=== PATIENT | female | born 1975 | race Caucasian/White ===

== ENCOUNTER 2019-08-27 20:28 | Emergency (ER) | payer BC, OTHER ==
[~2019-08-27] VITALS: Ht 160 cm; Wt 70.3 kg
[~2019-08-27 20:28] MED LIST: [UNRECOGNIZED DRUG - OTHER]
[2019-08-27 20:35] VITALS: BP 146/100
--- NOTE | 2019-08-27 20:47 | NUR ---
PT AMBULATES WITH STEADY GAIT TO RR TO PROVIDE URINE SAMPLE. INSTRUCTED TO RETURN TO BED 07.
--- NOTE | 2019-08-27 20:53 | NUR ---
44 Y/O F PRESENTS TO ER C/O SUPRAPUBIC PAIN X 2 DAYS. PAIN LEVLE 8/10 CONSTANT, SHARP AND RADIATES TO LOWER BACK. PT ALSO C/O OF LEGS "FEELING NUMB" PT WENT TO URGENT CARE TODAY AND WAS RECOMMENDED TO COME TO ER FOR ULSTRASOUND. PT DENIES ANY BURNING UPON URINATION AND DYSURIA. PT HAS NAUSEA. DENIES V/D. ALLERGIES: PENICILLINS AND MORPHINE. PT HX: OVARIAN CYST REMOVAL IN 1992 AND TRIGEMINAL NEURALGIA. SAFETY MEASURES IN PLACE. ERMD MADE AWARE OF PT STATUS.
--- NOTE | 2019-08-27 21:40 | NUR ---
PT NAUSEA AND HAS VOMITING. ERMD MADE AWARE.
[2019-08-27] MEDS ORDERED: NACL 0.9% 1,000 ML IV SCH (21:45)
[2019-08-27] MEDS ORDERED: fentaNYL 0.05 MG/ML VIAL IVP ONE (21:45)
[2019-08-27] MEDS ORDERED: ONDANSETRON 4 MG/2 ML VIAL IVP ONE (21:45)
[2019-08-27 22:14] LABS: BASOPHILS # (AUTO) 0.1 K/uL (0.00-0.22); BASOPHILS % (AUTO) 0.4 % (0.0-2.0); EOSINOPHILS % (AUTO) 0.3 % (0.0-4.0); HEMATOCRIT 38.6 % (36-48); HEMOGLOBIN 12.7 g/dL (12.0-16.0); LYMPHOCYTES # (AUTO) 2.4 K/uL (2.5-16.5); LYMPHOCYTES % (AUTO) 15.1 % (20.5-51.1); MEAN CORPUSCULAR HEMOGLOBIN 29 pg (27-31); MEAN CORPUSCULAR HGB CONC 33 g/dL (33-37); MEAN CORPUSCULAR VOLUME 86.8 fL (80-94); MONOCYTES # (AUTO) 1.1 K/uL (0.8-1.0); MONOCYTES % (AUTO) 6.9 % (1.7-9.3); NEUTROPHILS # (AUTO) 12.4 K/uL (1.8-7.7); NEUTROPHILS % (AUTO) 77.3 % (42.2-75.2); PLATELET COUNT (AUTO) 266 K/uL (140-450); RED BLOOD CELL COUNT(AUTO) 4.45 MIL/uL (4.20-5.40); RED CELL DISTRIBUTION WIDTH 13.8 % (11.6-13.7)
[2019-08-27 22:16] LABS: APPEARANCE,URINE CLEAR (CLEAR); BILIRUBIN,URINE NEGATIVE (NEGATIVE); BLOOD, URINE NEGATIVE (NEGATIVE); COLOR,URINE YELLOW (YELLOW); LEUKOCYTE ESTERASE ,URINE NEGATIVE (NEGATIVE); NITRITE, URINE NEGATIVE (NEGATIVE); PH,URINE 6.5 (5.0-9.0); UGLUCOSE NEGATIVE (NEGATIVE)
--- NOTE | 2019-08-27 22:16 | NUR ---
ULTRASOUND AT BEDSIDE
[2019-08-27 22:30] LABS: ANION GAP 15.8 (8-16); CARBON DIOXIDE 26.3 mmol/L (21-32); CREATININE 0.7 mg/dL (0.6-1.3); POTASSIUM 4.1 mmol/L (3.5-5.1)
[2019-08-27 22:35] LABS: ALBUMIN 3.8 g/dL (3.4-5.0); TOTAL BILIRUBIN 0.4 mg/dL (0.0-1.0)
--- NOTE | 2019-08-27 22:40 | NUR ---
PT AMBULATED TO RESTROOM
--- NOTE | 2019-08-27 23:28 | NUR ---
PT RESTING IN BED ON TABLET PLAYING GAMES. VSS. WILL CONTINUE TO MONITOR.
[2019-08-28 00:28] VITALS: BP 149/82
--- NOTE | 2019-08-28 00:28 | NUR ---
Patient discharged with v/s stable. Written and verbal after care instructions given and explained. Patient alert, oriented and verbalized understanding of instructions. Ambulatory with steady gait. All questions addressed prior to discharge. ID band removed. Patient advised to follow up with PMD. Rx of ZOFRAN, MOTRIN, NORCO given. Patient educated on indication of medication including possible reaction and side effects. Opportunity to ask questions provided and answered.
--- NOTE | 2019-08-28 01:46 | NUR ---
PT SENT HOME WITH DC PAPERS AND RX WITH INCORRECT NAME. PT CALLED AND INFORMED OF SITUATION. REQUESTED PT TO RETURN TO ER WITH PAPERWORK AND INFORMED WE WILL HAVE HER PAPERS AND RX WITH HER NAME PREPEARED AND READY. PT EXPRESSED DISATISFACTION AND HUNG UP. CALLED BACK TO [facility]. PT STATES SHE DID NOT WANT TO CONTINUE TALKING TO INFORMING NUSE. PT STATES SHE CAN COME IN THE AM.
== END 2019-08-28 00:28 | disposition home or self-care (01) ==
LOC: MED 20:28
DX: N83.202 Unspecified ovarian cyst, left side (principal); Z98.890 Other specified postprocedural states; Z88.0 Allergy status to penicillin; Z88.5 Allergy status to narcotic agent
CPT/HCPCS: 36415; 76856; 80053; 81003; 81025; 83690; 85025; 96374; 96375; 99283; J2405; J3010; J7030; Q0092

== ENCOUNTER 2022-07-15 07:49 | Emergency (ER) | payer OTHER ==
[~2022-07-15] VITALS: Ht 160 cm; Wt 75.7 kg
[2022-07-15 07:51] VITALS: BP 150/81
--- NOTE | 2022-07-15 07:55 | NUR ---
PT AMBULATED TO ER BED 5
--- NOTE | 2022-07-15 08:02 | NUR ---
47YO FEMALE PT BIB SELF C/O CHEST PAIN X6AM THIS MORNING. PT REPORTS SUDDEN ONSET OF SHARP 7/10 L SIDED CHEST PAIN EPISODES THAT LAST ABOUT <1 MIN. DENIES RADIATION, N/V/D OR SOB. DENIES TAKING MEDICATION PRIOR TO ARRIVAL. PT IN VISIBLE DISTRESS AND GUARDING CHEST AND HYPERVANTALATING. PT AAOX4, AMBULATORY W/ STEADY GAIT. PT ON HOG SAWYER, BED AT LOWEST POSITION , BED RAIL UP X1. HX: HTN ALLERGIES: PENICILLIN, MORPHINE
--- NOTE | 2022-07-15 08:09 | NUR ---
DR MCCORMACK AT BEDSIDE EVALUATING PT
[2022-07-15] MEDS ORDERED: KETOROLAC 60 MG/2 ML VIAL IM ONE (08:15)
[2022-07-15] MEDS ORDERED: IBUP-2213 PO (08:15)
--- NOTE | 2022-07-15 08:15 | NUR ---
PT REPORTS NEW ONSET OF NAUSEA, MADE AWARE
[2022-07-15] MEDS ORDERED: ONDANSETRON 4 MG ODT PO ONE (08:20)
[2022-07-15] MEDS ORDERED: DICYCLOMINE HCL LIQUID 20 MG, ALUMINUM HYD/MAG/SIMETHICONE 30 ML, LIDOCAINE VISCOUS 2% ... PO ONE ×3 (08:40)
[2022-07-15] MEDS ORDERED: DICYCLOMINE HCL LIQUID 10 MG/5 ML UDC ONE (08:41)
[2022-07-15] MEDS ORDERED: ALUMINUM HYD/MAG/SIMETHICONE 30 ML UDC ONE (08:41)
[2022-07-15] MEDS ORDERED: fentaNYL citrate 0.05 MG/ML VIAL IM ONE (09:05)
[2022-07-15] MEDS ORDERED: fentaNYL citrate 0.05 MG/ML VIAL ONE (09:06)
--- NOTE | 2022-07-15 09:45 | NUR ---
AT BEDSIDE. APPROVED/ REQUESTED BY CRYSTAL
[2022-07-15 10:07] LABS: BASOPHILS # (AUTO) 0.1 K/uL (0.00-0.22); BASOPHILS % (AUTO) 0.9 % (0.0-2.0); EOSINOPHILS # (AUTO) 0.1 K/uL (0-0.4); EOSINOPHILS % (AUTO) 0.9 % (0.0-4.0); HEMOGLOBIN 12.5 g/dL (12.0-16.0); LYMPHOCYTES # (AUTO) 2.1 K/uL (2.5-16.5); LYMPHOCYTES % (AUTO) 27.1 % (20.5-51.1); MEAN CORPUSCULAR HEMOGLOBIN 28 pg (27-31); MEAN CORPUSCULAR HGB CONC 34 g/dL (33-37); MEAN CORPUSCULAR VOLUME 83.6 fL (80-94); MONOCYTES # (AUTO) 0.4 K/uL (0.8-1.0); MONOCYTES % (AUTO) 5.4 % (1.7-9.3); NEUTROPHILS # (AUTO) 5.1 K/uL (1.8-7.7); NEUTROPHILS % (AUTO) 65.7 % (42.2-75.2); PLATELET COUNT (AUTO) 309 K/uL (140-450); RED BLOOD CELL COUNT(AUTO) 4.42 MIL/uL (4.20-5.40); RED CELL DISTRIBUTION WIDTH 13.6 % (11.6-13.7); WHITE BLOOD COUNT (AUTO) 7.8 K/uL (4.8-10.8)
--- NOTE | 2022-07-15 10:08 | NUR ---
XRAY AT BEDSIDE
[2022-07-15 10:23] LABS: ALBUMIN 3.7 g/dL (3.4-5.0); ANION GAP 10.1 (8-16); ASPARTATE AMINOTRANSFERASE 35 U/L (15-37); CARBON DIOXIDE 29.9 mmol/L (21-32); CHLORIDE 104 mmol/L (98-107); CREATININE 0.8 mg/dL (0.6-1.3); GFR ARICAN-AMERICAN 98 mL/min (>90); GLUCOSE 98 mg/dL (74-106); SODIUM SERUM 140 mmol/L (136-145); TOTAL BILIRUBIN 0.3 mg/dL (0.0-1.0); UREA NITROGEN, BLOOD 12 mg/dL (7-18)
[2022-07-15] MEDS ORDERED: ONDA8TAB87 PO (10:41)
[2022-07-15] MEDS ORDERED: ACET-8386 PO (10:41)
[2022-07-15 10:50] VITALS: BP 162/86
--- NOTE | 2022-07-15 10:50 | NUR ---
Patient discharged with v/s stable. Written and verbal after care instructions FOR CHEST WALL PAIN given and explained. Patient alert, oriented and verbalized understanding of instructions. Ambulatory with steady gait. All questions addressed prior to discharge. ID band removed. Patient advised to follow up with PMD. Rx of IBUPROFEN , ZOFRAN AND HYDROCODONE given. Opportunity to ask questions provided and answered.
--- NOTE | 2022-07-15 10:51 | NUR ---
The patient's care was reviewed and supervised by Linda Juárez RN.
== END 2022-07-15 10:50 | disposition home or self-care (01) ==
LOC: MED 07:49
DX: R07.89 Other chest pain (principal); I10 Essential (primary) hypertension; Z79.899 Other long term (current) drug therapy; Z98.890 Other specified postprocedural states; Z88.0 Allergy status to penicillin; Z88.5 Allergy status to narcotic agent
CPT/HCPCS: 36415; 71045; 80053; 81002; 81025; 84484; 85025; 93005; 96372; 99285; J1885; J3010; Q0162

== ENCOUNTER 2024-07-14 01:52 | Emergency (ER) | payer OTHER ==
[~2024-07-14] VITALS: Ht 160 cm; Wt 77.1 kg
[~2024-07-14 01:52] MED LIST changes: +ACET-8905 PO; +IBUP-2213 PO; +ONDA8TAB87 PO
[2024-07-14 01:56] VITALS: BP 152/73; PULSE 89; RESP 16; TEMP 97.8; O2SAT 99
[2024-07-14 02:25] LABS: BASOPHILS # (AUTO) 0.1 K/uL (0.00-0.22); BASOPHILS % (AUTO) 0.5 % (0.0-2.0); EOSINOPHILS # (AUTO) 0.2 K/uL (0-0.4); EOSINOPHILS % (AUTO) 1.6 % (0.0-4.0); HEMATOCRIT 33.8 % (36-48); HEMOGLOBIN 11.4 g/dL (12.0-16.0); LYMPHOCYTES # (AUTO) 2.9 K/uL (2.5-16.5); LYMPHOCYTES % (AUTO) 27.4 % (20.5-51.1); MEAN CORPUSCULAR HEMOGLOBIN 29 pg (27-31); MEAN CORPUSCULAR HGB CONC 34 g/dL (33-37); MEAN CORPUSCULAR VOLUME 85.5 fL (80-94); MONOCYTES # (AUTO) 0.7 K/uL (0.8-1.0); MONOCYTES % (AUTO) 6.8 % (1.7-9.3); NEUTROPHILS # (AUTO) 6.6 K/uL (1.8-7.7); NEUTROPHILS % (AUTO) 63.7 % (42.2-75.2); PLATELET COUNT (AUTO) 253 K/uL (140-450); RED BLOOD CELL COUNT(AUTO) 3.96 MIL/uL (4.20-5.40); RED CELL DISTRIBUTION WIDTH 13.7 % (11.6-13.7); WHITE BLOOD COUNT (AUTO) 10.4 K/uL (4.8-10.8)
[2024-07-14 02:32] LABS: ANION GAP 12.5 (8-16); CALCIUM 8.6 mg/dL (8.5-10.1); CARBON DIOXIDE 26.5 mmol/L (21-32); CHLORIDE 104 mmol/L (98-107); CREATININE 0.8 mg/dL (0.6-1.3); GFR ARICAN-AMERICAN 98 mL/min (>90); GFR NON ARICAN-AMERICAN 81 mL/min (>90); GLUCOSE 99 mg/dL (74-106); SODIUM SERUM 139 mmol/L (136-145); UREA NITROGEN, BLOOD 10 mg/dL (7-18)
[2024-07-14 02:35] VITALS: TEMP 97.8
[2024-07-14 02:40] LABS: ALANINE AMINOTRANSFERASE 21 U/L (12-78); ALBUMIN 3.5 g/dL (3.4-5.0); ALKALINE PHOSPHATASE 92 U/L (50-136); ASPARTATE AMINOTRANSFERASE 12 U/L (15-37); LIPASE 31 U/L (16-77); TOTAL BILIRUBIN 0.2 mg/dL (0.0-1.0); TOTAL PROTEIN, SERUM 7.3 g/dL (6.4-8.2)
[2024-07-14] MEDS: ONDANSETRON 4 MG/2 ML VIAL IVP ONE (02:53)
[2024-07-14 02:55] VITALS: O2SAT 97
[2024-07-14] MEDS ORDERED: IBUP-1842 PO (04:44)
[2024-07-14 05:08] VITALS: BP 135/76; PULSE 64; RESP 12; O2SAT 99
[2024-07-14] MEDS: KETOROLAC 30 MG/ML VIAL IVP ONE (05:13)
== END 2024-07-14 05:33 | disposition home or self-care (01) ==
LOC: MED 01:52
DX: R07.89 Other chest pain (principal); R10.13 Epigastric pain; R11.2 Nausea with vomiting, unspecified; I10 Essential (primary) hypertension; Z79.1 Long term (current) use of non-steroidal anti-inflammatories (NSAID); Z79.899 Other long term (current) drug therapy; Z88.0 Allergy status to penicillin; Z88.5 Allergy status to narcotic agent
CPT/HCPCS: 36415; 71045; 76705; 80053; 83690; 84484; 85025; 85379; 96374; 96375; 99285; J1885; J2405; Q0092; 93005